=== PATIENT | female | born 1975 | race Caucasian/White ===

== ENCOUNTER 2018-06-01 12:48 | Emergency (ER) | payer OTHER, BC ==
[~2018-06-01] VITALS: Ht 165.1 cm; Wt 97.7 kg
[2018-06-01] MEDS ORDERED: BUSP10TA (12:56)
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
[2018-06-01] MEDS ORDERED: IBUP80TA PO (15:11)
[2018-06-01] MEDS ORDERED: ROBA500T PO (15:11)
--- NOTE | 2018-06-01 15:11 | REP ---
LUMBOSACRAL SPINE: Five views lumbosacral spine are performed. There is no compression fracture or malalignment with normal lumbar lordosis. There is no spondylolysis or spondylolisthesis. There is mild disc space narrowing and subchondral sclerosis, with sclerosis at the facets, at L5-S1. Posterior elements are intact. IMPRESSION: No fracture or dislocation. Mild degenerative changes. Electronically Signed by Bismark De Luna MD 06/01/2018 03:48 P
--- NOTE | 2018-06-01 15:14 | REP ---
THORACIC SPINE: AP and lateral views of the thoracic spine are performed with three total views obtained. There is no compression fracture or malalignment. There is normal thoracic kyphosis. Disc spaces are well preserved. Posterior elements are intact. IMPRESSION: No fracture or dislocation. Electronically Signed by Bismark De Luna MD 06/01/2018 03:48 P
[2018-06-01] MEDS ORDERED: IBUPROFEN 800 MG TAB PO ONE (15:15)
[2018-06-01 15:20] VITALS: BP 115/64
== END 2018-06-01 15:26 | disposition home or self-care (01) ==
LOC: M ED 12:48
DX: I10 Essential (primary) hypertension (principal)

== ENCOUNTER → 2019-05-24 | Outpatient (REF) | payer BC ==
[~2019-05-24] MED LIST: BUSP10TA; IBUP80TA PO; ROBA500T PO
[2019-05-24 18:28] LABS: BASO # 0.1 10^3/uL (0.0-0.2); BASO % 0.9 % (0.0-1.0); EOS # 0.2 10^3/uL (0.0-0.5); EOS % 2.7 % (0.0-3.0); HEMOGLOBIN 15.2 g/dl (12.0-15.5); LYMPH # 2.6 10^3/uL (1.5-5.0); LYMPH % 39.2 % (24.0-44.0); MEAN CORPUSCULAR HEMOGLOBIN 28.3 pg (27.0-33.0); MEAN CORPUSCULAR HGB CONC 32.3 g/dl (32.0-36.5); MEAN CORPUSCULAR VOLUME 87.4 fl (80.0-96.0); MONO # 0.4 10^3/uL (0.0-0.8); MONO % 6.2 % (0.0-5.0); NEUTROPHILS # 3.4 10^3/uL (1.5-8.5); NEUTROPHILS % 50.7 % (36.0-66.0); PLATELET COUNT, AUTOMATED 226 10^3/uL (150-450); RED BLOOD COUNT 5.38 10^6/uL (4.00-5.40); WHITE BLOOD COUNT 6.6 10^3/uL (4.0-10.0)
[2019-05-24 18:53] LABS: MAU/CREAT RATIO 6.5 MCG/MG (0.0-30.0)
[2019-05-24 18:57] LABS: CHOLESTEROL RISK RATIO 4.25 (<5); FREE T4 0.95 NG/DL (0.76-1.46); THYROID STIMULATING HORMONE 3.34 uIU/ML (0.358-3.740)
[2019-05-24 18:59] LABS: HEMOGLOBIN A1c 5.2 %
== END ==
LOC: M SFHCPLAZ 15:40
PROVIDERS: ATTEND Family Medicine
DX: Z13.220 Encounter for screening for lipoid disorders (principal); Z13.1 Encounter for screening for diabetes mellitus; E66.9 Obesity, unspecified

== ENCOUNTER → 2019-05-27 | Outpatient (CLI) | payer BC ==
--- NOTE | 2019-05-27 07:27 | REP ---
Clinical: Epigastric pain. Technique: Real time umaña scale ultrasound examination using curved array transducer. Findings: Liver and pancreas are normal in contour, size, echogenicity without focal hepatic or pancreatic lesion identified. Gallbladder is normal and without gallstones, wall thickening, or pericholecystic fluid. No biliary ductal dilatation is appreciated and the common bile duct measures 3.6 mm diameter. The right kidney is normal in reniform shape without hydronephrosis and measures 10.9 x 4.6 x 4.3 cm. Visualized abdominal aorta normal. No ascites in the right upper quadrant. Impression: Normal right upper quadrant ultrasound examination. Electronically Signed by Chandler Cote MD 05/27/2019 07:18 A
== END ==
LOC: M RAD 06:36
PROVIDERS: ATTEND Student in an Organized Health Care Education/Training Program
DX: R10.13 Epigastric pain (principal)

== ENCOUNTER → 2019-06-27 | Outpatient (REF) | payer BC ==
[2019-06-28 12:10] LABS: CHLAMYDIA DNA AMPLIFICATION NEGATIVE (NEGATIVE); GC DNA AMPLIFICATION NEGATIVE (NEGATIVE)
== END ==
LOC: M SFHCPLAZ 10:12
PROVIDERS: ATTEND Obstetrics & Gynecology
DX: Z01.419 Encounter for gynecological examination (general) (routine) without abnormal findings (principal); Z11.9 Encounter for screening for infectious and parasitic diseases, unspecified

== ENCOUNTER → 2020-04-18 | Outpatient (CLI) | payer BC | LOC: M LABSMTC 14:04 | PROVIDERS: ATTEND Anesthesiology | DX: Z01.812 Encounter for preprocedural laboratory examination (principal); Z20.828 Contact with and (suspected) exposure to other viral communicable diseases ==

== ENCOUNTER 2020-04-23 06:58 | Day surgery (SDC) | payer BC ==
[~2020-04-23] VITALS: Ht 165.1 cm; Wt 92.1 kg
[~2020-04-23 06:58] MED LIST changes: +LIDOCAINE 1% MDV 20ML VIAL SQ PRN; +LR 1,000 ML IV ONE
[2020-04-23] MEDS ORDERED: MIDAZOLAM INJ 2MG/2ML VIAL (J2250 PER 1MG) As Ordered ONE (08:15)
[2020-04-23] MEDS ORDERED: propofoL 200 MG/20 ML VIAL As Ordered ONE (08:15)
[2020-04-23] MEDS ORDERED: LIDOCAINE 2% 100MG/5ML SDV (FOR ANES.) As Ordered ONE (08:15)
[2020-04-23] MEDS ORDERED: fentaNYL 100 MCG/2 ML INJECTION (J3010) As Ordered ONE (08:15)
[2020-04-23] MEDS ORDERED: CHLOROPROCAINE PRES. FREE 3% 20ML VIAL As Ordered ONE (08:34)
--- NOTE | 2020-04-23 10:21 | RO ---
OPERATIVE NOTE DATE OF OPERATION: 04/23/2020 PREOPERATIVE DIAGNOSIS: Perianal fistula. POSTOPERATIVE DIAGNOSIS: Perianal fistula. PROCEDURE: Fistulotomy. SURGEON: Bismark Mera, DO ANESTHESIA: Spinal with sedation. ESTIMATED BLOOD LOSS: 2 mL COMPLICATIONS: None. INDICATIONS FOR PROCEDURE: The patient is a 45-year-old female who presents with persistent perianal pain and itching, found to have a fistula on exam in the office. Recommendation was to proceed with rectal exam under anesthesia with possible fistulotomy versus Seton placement. Risks and benefits of the procedure not limited to but including bleeding, infection, damage to surrounding structures, incontinence and need for further surgery were discussed in detail to the patient. Informed consent was obtained and the procedure was planned. PROCEDURE: The patient was brought back to operating room 2. After sufficient spinal sedation, she was placed in the prone position. The presacral and perianal area were sterilely prepped and draped with Betadine. Next, a timeout was done to confirm proper patient and proper procedure. Following that, a speculum was placed inside the rectum. The fistula was identified. A flexible probe was then passed through the external opening all the way to the inside. The fistulous tract was superficial to the sphincter muscle. I was able to filet the tract open using cautery. The inside of the tract was then cauterized to control hemostasis. Once this was completed, the patient was awakened from anesthesia and sent to PACU in stable condition.
[2020-04-23] MEDS ORDERED: HYDROMORPHONE HCL 0.5 MG/ 0.5 ML SYRINGE (J1170 PER 1) IV PRN (10:30)
[2020-04-23] MEDS ORDERED: ONDANSETRON 4MG/2ML VIAL IV PRN (10:30)
[2020-04-23] MEDS ORDERED: LR 1,000 ML IV SCH (10:30)
[2020-04-23] MEDS ORDERED: fentaNYL 100 MCG/2 ML INJECTION (J3010) IV PRN (10:30)
[2020-04-23] MEDS ORDERED: NORCO, ANEXSIA 5/325MG TABLET (HYDROcodone/ACETAMINOPHEN) PO PRN (11:30)
[2020-04-23 12:05] VITALS: BP 112/69
== END 2020-04-23 13:17 | disposition home or self-care (01) ==
LOC: M SDC 06:58
PROVIDERS: ATTEND Surgery
DX: K60.5 Anorectal fistula (principal); K58.8 Other irritable bowel syndrome; F17.210 Nicotine dependence, cigarettes, uncomplicated; K21.9 Gastro-esophageal reflux disease without esophagitis; F41.9 Anxiety disorder, unspecified; Z88.5 Allergy status to narcotic agent; Z88.8 Allergy status to other drugs, medicaments and biological substances
CPT/HCPCS: 46270; 81025; J2250; J2400; J3010

== ENCOUNTER → 2020-11-12 | Outpatient (CLI) | payer OTHER ==
[~2020-11-12] MED LIST changes: -LIDOCAINE 1% MDV 20ML VIAL SQ PRN; -LR 1,000 ML IV ONE
[2020-11-12 18:02] LABS: APPEARANCE, URINE CLEAR (CLEAR); BACTERIA, URINE AUTO NEGATIVE (NEGATIVE); BILIRUBIN, URINE AUTO NEGATIVE (NEGATIVE); BLOOD, URINE BLOOD NEGATIVE (NEGATIVE); COLOR, URINE YELLOW (YELLOW); GLUCOSE, URINE (UA) AUTO NEGATIVE (NEGATIVE); KETONE, URINE AUTO NEGATIVE (NEGATIVE); LEUKOCYTE ESTERASE, URINE AUTO NEGATIVE (NEGATIVE); NITRITE, URINE AUTO NEGATIVE (NEGATIVE); PROTEIN, URINE AUTO NEGATIVE (NEGATIVE); RBC, URINE AUTO 0 /HPF (0-3); SPECIFIC GRAVITY URINE AUTO 1.016 (1.002-1.035); SQUAMOUS EPITHELIAL CELL UR AU 1 /HPF (0-6); UROBILINOGEN, URINE AUTO 0.2 mg/dL (0.0-2.0); WBC, URINE AUTO 0 /HPF (0-3)
[2020-11-12 18:03] LABS: BASO # 0.1 10^3/uL (0.0-0.2); BASO % 0.7 % (0.0-1.0); EOS # 0.2 10^3/uL (0.0-0.5); EOS % 3.2 % (0.0-3.0); HEMATOCRIT 42.8 % (36.0-47.0); HEMOGLOBIN 14.2 g/dl (12.0-15.5); LYMPH # 2.5 10^3/uL (1.5-5.0); LYMPH % 34.9 % (24.0-44.0); MEAN CORPUSCULAR HEMOGLOBIN 29.2 pg (27.0-33.0); MEAN CORPUSCULAR HGB CONC 33.2 g/dl (32.0-36.5); MEAN CORPUSCULAR VOLUME 88.1 fl (80.0-96.0); MONO # 0.4 10^3/uL (0.0-0.8); MONO % 6.1 % (2.0-8.0); NEUTROPHILS % 54.7 % (36.0-66.0); PLATELET COUNT, AUTOMATED 211 10^3/uL (150-450); RED BLOOD COUNT 4.86 10^6/uL (4.00-5.40); WHITE BLOOD COUNT 7.2 10^3/uL (4.0-10.0)
[2020-11-12 18:43] LABS: BLOOD UREA NITROGEN 11 MG/DL (7-18); CALCIUM LEVEL 8.9 MG/DL (8.5-10.1); CARBON DIOXIDE LEVEL 28 MEQ/L (21-32); CHLORIDE LEVEL 111 MEQ/L (98-107); CREATININE FOR GFR 0.77 MG/DL (0.55-1.30); GLOMERULAR FILTRATION RATE > 60.0 (>58); GLUCOSE, FASTING 81 MG/DL (70-100); POTASSIUM SERUM 4.6 MEQ/L (3.5-5.1); SODIUM LEVEL 144 MEQ/L (136-145)
[2020-11-14 19:48] LABS: FREE T4 0.87 NG/DL (0.76-1.46)
== END ==
LOC: M LAB 17:24
PROVIDERS: ATTEND Student in an Organized Health Care Education/Training Program
DX: R51.9 Headache, unspecified (principal)

== ENCOUNTER → 2021-02-20 | Outpatient (CLI) | payer OTHER | LOC: M LABSMTC 09:55 | PROVIDERS: ATTEND Pediatrics | DX: Z20.822 Contact with and (suspected) exposure to COVID-19 (principal) | CPT/HCPCS: C9803; U0003 ==

== ENCOUNTER 2022-04-03 17:35 | Emergency (ER) | payer OTHER, SELFPAY ==
[~2022-04-03] VITALS: Ht 165.1 cm; Wt 101.6 kg
[2022-04-03] MEDS ORDERED: ACET-683 PO (17:45)
[2022-04-03 20:20] LABS: APPEARANCE, URINE MANUAL CLEAR (CLEAR); COLOR, URINE MANUAL YELLOW (YELLOW); SPECIFIC GRAVITY,URINE MANUAL 1.025 (1.002-1.035)
[2022-04-03 20:21] LABS: BILIRUBIN, URINE MANUAL NEGATIVE (NEGATIVE); BLOOD URINE MANUAL NEGATIVE (NEGATIVE); GLUCOSE, URINE (UA) MANUAL NEGATIVE (NEGATIVE); KETONE, URINE MANUAL NEGATIVE (NEGATIVE); LEUKOCYTE ESTERASE, URINE MAN TRACE (NEGATIVE); NITRITE, URINE MANUAL NEGATIVE (NEGATIVE); PROTEIN, URINE MANUAL NEGATIVE (NEGATIVE); UROBILINOGEN, URINE MANUAL NORMAL (NORMAL)
[2022-04-03 20:35] LABS: BACTERIA, URINE MOD AMOUNT; HYALINE CAST, URINE NONE SEEN /lpf (0-1); MUCUS, URINE LARGE AMOUNT (NEGATIVE); RBC, URINE 0-1 /hpf (0-3); SQUAMOUS EPITHELIAL CELL URINE LARGE AMOUNT /hpf (SMALL AMT)
[2022-04-03] MEDS ORDERED: KETOROLAC 30 MG/ML 1ML VIAL IM ONE (21:05)
[2022-04-03] MEDS ORDERED: methocarbamoL 500 MG TAB PO ONE (21:05)
[2022-04-03] MEDS ORDERED: METH-1164 PO (21:15)
[2022-04-03] MEDS ORDERED: MEDR4PAK PO (21:16)
[2022-04-03 21:21] VITALS: BP 124/71
== END 2022-04-03 21:24 | disposition home or self-care (01) ==
LOC: M ED 17:35
DX: S39.012A Strain of muscle, fascia and tendon of lower back, initial encounter (principal); X50.0XXA Overexertion from strenuous movement or load, initial encounter; Y99.0 Civilian activity done for income or pay; M54.41 Lumbago with sciatica, right side; F41.0 Panic disorder [episodic paroxysmal anxiety]; F17.200 Nicotine dependence, unspecified, uncomplicated; Z88.5 Allergy status to narcotic agent; Z88.8 Allergy status to other drugs, medicaments and biological substances; Z79.899 Other long term (current) drug therapy
CPT/HCPCS: 36415; 80047; 81000; 96372; 99283; J1885

== ENCOUNTER → 2022-07-04 | Outpatient (CLI) | payer OTHER ==
[~2022-07-04] MED LIST changes: +ACET-683 PO; +MEDR4PAK PO; +METH-1164 PO
== END ==
LOC: M WHC 09:36
PROVIDERS: ATTEND Student in an Organized Health Care Education/Training Program
DX: Z12.31 Encounter for screening mammogram for malignant neoplasm of breast (principal)

== ENCOUNTER → 2022-08-15 | Outpatient (CLI) | payer SELFPAY ==
[2022-08-15 14:47] LABS: BASO % 0.7 % (0.0-1.0); EOS # 0.2 10^3/uL (0.0-0.5); EOS % 3.8 % (0.0-3.0); HEMATOCRIT 45.7 % (36.0-47.0); HEMOGLOBIN 14.5 g/dl (12.0-15.5); LYMPH # 1.9 10^3/uL (1.5-5.0); LYMPH % 34.4 % (24.0-44.0); MEAN CORPUSCULAR HEMOGLOBIN 28.6 pg (27.0-33.0); MEAN CORPUSCULAR HGB CONC 31.7 g/dl (32.0-36.5); MEAN CORPUSCULAR VOLUME 90.1 fl (80.0-96.0); MONO # 0.4 10^3/uL (0.0-0.8); MONO % 7.4 % (2.0-8.0); NEUTROPHILS # 2.9 10^3/uL (1.5-8.5); NEUTROPHILS % 53.3 % (36.0-66.0); PLATELET COUNT, AUTOMATED 222 10^3/uL (150-450); RED BLOOD COUNT 5.07 10^6/uL (4.00-5.40); WHITE BLOOD COUNT 5.5 10^3/uL (4.0-10.0)
[2022-08-15 15:17] LABS: ALBUMIN 3.4 G/DL (3.2-5.2); BILIRUBIN,TOTAL 0.2 MG/DL (0.3-1.2); CALCIUM LEVEL 8.5 MG/DL (8.5-10.1); CHOLESTEROL RISK RATIO 3.75 (<5); CREATININE FOR GFR 1.1 MG/DL (0.55-1.30); GLOMERULAR FILTRATION RATE 56.9 (>58); POTASSIUM SERUM 4.2 MMOL/L (3.5-5.1); TOTAL PROTEIN 6.2 G/DL (5.7-8.2)
[2022-08-15 15:20] LABS: THYROID STIMULATING HORMONE 1.986 uIU/ML (0.55-4.78); THYROXINE (T4) 9.8 UG/DL (4.5-10.9)
[2022-08-15 15:21] LABS: FREE THYROXINE INDEX 2.6 % (1.3-4.8); T UPTAKE 26.8 % (22.5-37.0)
[2022-08-15 15:22] LABS: PROLACTIN 5.26 NG/ML
== END ==
LOC: M PLALAB 08:52
PROVIDERS: ATTEND Student in an Organized Health Care Education/Training Program
DX: Z00.00 Encounter for general adult medical examination without abnormal findings (principal); N64.52 Nipple discharge; Z13.220 Encounter for screening for lipoid disorders; Z13.1 Encounter for screening for diabetes mellitus; Z13.29 Encounter for screening for other suspected endocrine disorder

== ENCOUNTER 2022-11-13 09:41 | Emergency (ER) | payer SELFPAY ==
[~2022-11-13] VITALS: Ht 165.1 cm; Wt 100.0 kg
[2022-11-13] MEDS ORDERED: NS 1,000 ML IV ONE (11:30)
[2022-11-13 12:08] LABS: BASO % 0.8 % (0.0-1.0); EOS # 0.1 10^3/uL (0.0-0.5); EOS % 1.8 % (0.0-3.0); HEMATOCRIT 44.5 % (36.0-47.0); HEMOGLOBIN 14.4 g/dl (12.0-15.5); LYMPH # 0.9 10^3/uL (1.5-5.0); LYMPH % 22.9 % (24.0-44.0); MEAN CORPUSCULAR HEMOGLOBIN 28.4 pg (27.0-33.0); MEAN CORPUSCULAR HGB CONC 32.4 g/dl (32.0-36.5); MEAN CORPUSCULAR VOLUME 87.8 fl (80.0-96.0); MONO # 0.6 10^3/uL (0.0-0.8); MONO % 14.5 % (2.0-8.0); NEUTROPHILS # 2.3 10^3/uL (1.5-8.5); NEUTROPHILS % 59.5 % (36.0-66.0); PLATELET COUNT, AUTOMATED 169 10^3/uL (150-450); RED BLOOD COUNT 5.07 10^6/uL (4.00-5.40); WHITE BLOOD COUNT 3.8 10^3/uL (4.0-10.0)
[2022-11-13 12:38] LABS: LIPASE 39 U/L (12-53)
[2022-11-13 12:40] LABS: ALBUMIN 3.4 G/DL (3.2-5.2); ALKALINE PHOSPHATASE 87 U/L (46-116); ALT/SGPT 21 U/L (7.0-40); AST/SGOT 25 U/L (<34); BILIRUBIN,DIRECT < 0.1 MG/DL (<0.4); BILIRUBIN,TOTAL 0.3 MG/DL (0.3-1.2); TOTAL PROTEIN 6.4 G/DL (5.7-8.2)
[2022-11-13 14:25] LABS: MONO SCRN NEGATIVE (NEGATIVE)
[2022-11-13 14:55] VITALS: BP 101/63; TEMP 98.8; O2SAT 96
== END 2022-11-13 15:04 | disposition home or self-care (01) ==
LOC: M ED 09:41
DX: J06.9 Acute upper respiratory infection, unspecified (principal); B34.9 Viral infection, unspecified; F41.9 Anxiety disorder, unspecified; F17.200 Nicotine dependence, unspecified, uncomplicated; Z88.8 Allergy status to other drugs, medicaments and biological substances

== ENCOUNTER → 2023-09-11 | Outpatient (CLI) | payer OTHER | LOC: M WHC 09:54 | PROVIDERS: ATTEND Nurse Practitioner Family | DX: Z12.31 Encounter for screening mammogram for malignant neoplasm of breast (principal) ==

== ENCOUNTER → 2023-10-16 | Outpatient (REF) | payer OTHER ==
[2023-10-20 16:12] LABS: HPV APTIMA Not Detected (Not Detected)
== END ==
LOC: M SFHCWAGY 17:02
PROVIDERS: ATTEND Nurse Practitioner Family
DX: Z12.4 Encounter for screening for malignant neoplasm of cervix (principal)
CPT/HCPCS: 87624; G0123

== ENCOUNTER 2023-12-08 03:46 | Emergency (ER) | payer OTHER, SELFPAY ==
[~2023-12-08] VITALS: Ht 165.1 cm; Wt 106.0 kg
[2023-12-08] MEDS: ACETAMINOPHEN 500 MG TAB PO ONE (07:22)
[2023-12-08] MEDS: AUGMENTIN 875 MG TAB PO ONE (07:23)
[2023-12-08] MEDS: KETOROLAC 30 MG/ML 1ML VIAL IM ONE (07:23)
[2023-12-08] MEDS ORDERED: AMOX875T2 PO (08:04)
[2023-12-08 08:33] VITALS: BP 127/89; TEMP 97.9; O2SAT 96
== END 2023-12-08 08:30 | disposition home or self-care (01) ==
LOC: M ED 03:46
DX: K04.7 Periapical abscess without sinus (principal); F41.0 Panic disorder [episodic paroxysmal anxiety]; F17.210 Nicotine dependence, cigarettes, uncomplicated; F10.10 Alcohol abuse, uncomplicated; Z88.5 Allergy status to narcotic agent; Z88.8 Allergy status to other drugs, medicaments and biological substances; Z79.1 Long term (current) use of non-steroidal anti-inflammatories (NSAID); Z79.2 Long term (current) use of antibiotics
CPT/HCPCS: 96372; 99283; J1885